=== PATIENT | male | born 1975 | race African-American/Black ===

== ENCOUNTER 2016-06-04 18:24 | Observation (INO) | payer OTHER ==
[~2016-06-04] VITALS: Ht 175.3 cm; Wt 69.6 kg
[~2016-06-04 18:24] MED LIST: ACETAMINOPHEN500 MG PO; ALEVE220 M2 PO; DOXYCYCLINE HY100 MG PO; INDOCIN25 MG PO; NAPROSYN500 MG PO; NORCO 5/3251 TABLET PO; PROMETHAZINE HC25 M1 PO; TAMIFLU75 MG PO; ULTRAM50 MG PO; ZANTAC150 MG PO; ZOFRAN4 MG PO
[2016-06-04 19:17] LABS: HEMATOCRIT 44.2 % (38.0-50.0); MCH 30.2 PG (29.0-34.0); MCHC 33.9 G/DL (30.0-36.0); MCV 88.9 FL (86-99); MEAN PLAT.VOLUME 9.9 uM^3 (9.0-12.4); PLATELET COUNT 159 K/uL (156-360); RBC DIS.WIDTH-CV 12.5 % (11.8-14.6); RBC DIS.WIDTH-SD 40.7 % (39-53); RED BLOOD COUNT 4.97 M/uL (4.00-5.50); WHITE BLOOD COUNT 3.6 K/uL (4.1-10.2)
[2016-06-04 19:27] LABS: CHLORIDE 108 mEq/L (99-109); POTASSIUM 4.1 mEq/L (3.7-5.4); SODIUM 139 mEq/L (136-147)
[2016-06-04 19:30] LABS: GLUCOSE 87 mg/dL (70-99)
[2016-06-04 19:31] LABS: ANION GAP 9 MEQ/L (2-14)
[2016-06-04 19:32] LABS: TOTAL BILIRUBIN 0.4 mg/dL (0.0-1.0)
[2016-06-04 19:33] LABS: ALKALINE PHOSPHATASE 87 IU/L (3-129); GFR ESTIMATE (CALCULATED) > 59 mL/min/
[2016-06-04 19:34] LABS: UREA NITROGEN (BUN) 15 mg/dL (9-23)
[2016-06-04 19:38] LABS: TROP-I INTERPRETATION NEGATIVE; TROPONIN-I < 0.01 ng/mL (0.0-0.30)
[2016-06-04 21:09] LABS: TROP-I INTERPRETATION NEGATIVE; TROPONIN-I < 0.01 ng/mL (0.0-0.30)
[2016-06-04 22:56] VITALS: BP 128/67
[2016-06-05 03:45] VITALS: BP 122/58
[2016-06-05 04:54] LABS: TROP-I INTERPRETATION NEGATIVE; TROPONIN-I < 0.01 ng/mL (0.0-0.30)
[2016-06-05 05:14] LABS: HDL CHOLESTEROL 28 MG/DL (Desirable>=40); LDL CHOLESTEROL 132 mg/dL (Desirable<100); NON-HDL CHOLESTEROL 166 mg/dL (Desirable<160); TOTAL CHOLESTEROL 194 mg/dL (Desirable<200); TRIGLYCERIDES 172 MG/DL (Normal: <150)
[2016-06-05 08:41] VITALS: BP 129/75
[2016-06-05] MEDS ORDERED: MOTRIN600 MG PO (08:47)
== END 2016-06-05 11:58 | disposition home or self-care (01) ==
LOC: EME 18:24 → EDOF 21:30 → 5WEST 21:30 → EDOF 21:53 → 5WEST 22:30
PROVIDERS: Family Medicine; Physician Assistant
DX: M94.0 Chondrocostal junction syndrome [Tietze] (principal); R07.89 Other chest pain; F17.200 Nicotine dependence, unspecified, uncomplicated
CPT/HCPCS: 71020; 80053; 80061; 84484; 85027; 93005; 94640; 99281; 99285; G0378

== ENCOUNTER 2017-07-18 20:42 | Observation (INO) | payer OTHER ==
[~2017-07-18] VITALS: Ht 176.5 cm; Wt 60.5 kg
[~2017-07-18 20:42] MED LIST changes: +MOTRIN600 MG PO
[2017-07-18 22:25] LABS: BASOPHIL (%) 0.5 % (0-1); EOSINOPHIL (%) 0.5 % (0-5); HEMATOCRIT 42.2 % (38.0-50.0); HEMOGLOBIN 15.2 G/DL (12.5-16.6); IMMATURE GRANULOCYTE (%) 0.2 % (0.0-0.7); LYMPHOCYTE (%) 39.9 % (15-42); LYMPHOCYTE COUNT 2.4 K/uL (1.0-2.8); MCH 32.3 PG (29.0-34.0); MCV 89.8 FL (86-99); MONOCYTE (%) 10.9 % (3-12); MONOCYTE COUNT 0.7 K/uL (0-0.8); NEUTROPHIL COUNT 2.9 K/uL (1.8-6.4); PLATELET COUNT 166 K/uL (156-360); RBC DIS.WIDTH-CV 12.5 % (11.8-14.6); RBC DIS.WIDTH-SD 41.5 % (39-53); WHITE BLOOD COUNT 6.1 K/uL (4.1-10.2)
[2017-07-18 22:33] LABS: ALBUMIN 4.5 g/dL (3.2-4.8)
[2017-07-18 22:34] LABS: CHLORIDE 107 mEq/L (99-109); POTASSIUM 3.4 mEq/L (3.7-5.4); SODIUM 139 mEq/L (136-147)
[2017-07-18 22:36] LABS: D-DIMER ELISA < 150.00 ng/mLDDU (<230); GLUCOSE 90 mg/dL (70-99); TOTAL PROTEIN 7.6 g/dL (6.4-8.3)
[2017-07-18 22:38] LABS: TOTAL BILIRUBIN 0.6 mg/dL (0.0-1.0)
[2017-07-18 22:39] LABS: ALKALINE PHOSPHATASE 83 IU/L (3-129)
[2017-07-18 22:40] LABS: CREATININE 1.2 mg/dL (0.6-1.3); GFR ESTIMATE (CALCULATED) > 59 mL/min/ (58.99-99999)
[2017-07-18 22:41] LABS: AST (GOT) 15 IU/L (2-34); UREA NITROGEN (BUN) 19 mg/dL (9-23)
[2017-07-18 22:42] LABS: ALT (GPT) 15 IU/L (3-49)
[2017-07-18 22:45] LABS: TROP-I INTERPRETATION NEGATIVE; TROPONIN-I < 0.01 ng/mL (0.0-0.30)
[2017-07-18] MEDS ORDERED: ALEVE220 MG PO (23:06)
[2017-07-18] MEDS ORDERED: BAYER PLUS 500500 MG PO (23:07)
[2017-07-19 00:25] LABS: SERUM ETHYL ALCOHOL < 10 mg/dL
[2017-07-19 00:57] VITALS: BP 137/88
[2017-07-19 03:48] VITALS: BP 122/65
[2017-07-19 06:15] LABS: TROP-I INTERPRETATION NEGATIVE; TROPONIN-I < 0.01 ng/mL (0.0-0.30)
[2017-07-19 06:25] LABS: HDL CHOLESTEROL 41 MG/DL (Desirable>=40); LDL CHOLESTEROL 119 mg/dL (Desirable<100); NON-HDL CHOLESTEROL 140 mg/dL (Desirable<160); TOTAL CHOLESTEROL 181 mg/dL (Desirable<200); TRIGLYCERIDES 106 MG/DL (Normal: <150)
[2017-07-19 06:49] LABS: APPEARANCE CLEAR ((CLEAR)); BILIRUBIN NEGATIVE; BLOOD NEGATIVE; COLOR YELLOW ((YELLOW)); GLUCOSE (STRIP) NEGATIVE; KETONES 5; LEUKOCYTES NEGATIVE; NITRITE NEGATIVE; PROTEIN (STRIP) NEGATIVE; SPECIFIC GRAVITY > 1.060 (1.000-1.030); UCUL ADDED? NO
[2017-07-19 07:58] LABS: BENZODIAZEPINES, URINE SCREEN Negative (200 ng/mL)
[2017-07-19 08:02] VITALS: BP 112/58
[2017-07-19 09:58] LABS: HEMOGLOBIN A1c (GLYCOHEMOGLOB) 5.6 % (Below 5.7)
[2017-07-19 11:33] LABS: TROP-I INTERPRETATION NEGATIVE; TROPONIN-I < 0.01 ng/mL (0.0-0.30)
[2017-07-19 11:51] VITALS: BP 111/57
[2017-07-19 13:25] LABS: HIV-1/2 AB/AG COMBO Nonreactive
== END 2017-07-19 15:50 | disposition left against medical advice (07) ==
LOC: EME 20:42 → EDOF 23:14 → 4SOUTH 23:14 → ENRESERV 23:16 → 4SOUTH 07-19 00:47
PROVIDERS: Emergency Medicine; Hospitalist; Physician Assistant Medical
DX: R07.89 Other chest pain (principal); R55 Syncope and collapse; F12.10 Cannabis abuse, uncomplicated; F17.200 Nicotine dependence, unspecified, uncomplicated; R63.4 Abnormal weight loss; F41.0 Panic disorder [episodic paroxysmal anxiety]; R06.02 Shortness of breath; R42 Dizziness and giddiness; Z82.5 Family history of asthma and other chronic lower respiratory diseases; K21.9 Gastro-esophageal reflux disease without esophagitis; Z79.82 Long term (current) use of aspirin
CPT/HCPCS: 70450; 71045; 71275; 80053; 80061; 80306 90; 81003; 83036; 83605; 83880; 84484; 85025; 85379; 87040; 87389; 93005; 93306; 94640; 99202; 99281; 99285; G0378; G0480; G8978 GP CI; G8979 GP CH; G8987 GO CI; G8988 GO CH; J2060; J3010; J7040